=== PATIENT | male | born 1965 | race African-American/Black ===

== ENCOUNTER 2020-10-25 09:47 | Inpatient (IN) | payer MEDICAID ==
[~2020-10-25] VITALS: Ht 185.4 cm; Wt 131.1 kg
[2020-10-25 10:30] LABS: BASOPHILS % 0.9 % (0.0-2.0); HEMATOCRIT. 27.4 % (42.0-52.0); HEMOGLOBIN. 8.3 g/dL (14.0-18.0); LYMPHOCYTES % 14.1 % (20.0-50.0); MEAN CORPUSCULAR HEMOGLOBIN 20.6 pg (28.0-32.0); MEAN CORPUSCULAR VOLUME 68.1 fL (80.0-94.0); MEAN PLATELET VOLUME 7.5 fl (7.4-10.4); MONOCYTES % 7.1 % (2.0-8.0); NEUTROPHILS % 75.9 % (40.0-76.0); PLATELET 483 x1000/uL (130-400); RED BLOOD CELL COUNT 4.03 mill/uL (4.7-6.1); RED CELL DISTRIBUTION WIDTH 22.8 % (11.6-14.6)
[2020-10-25 10:36] LABS: CHLORIDE 101 mEq/L (98-107)
[2020-10-25 10:45] LABS: ETHANOL BLOOD < 10 mg/dL
[2020-10-25] MEDS ORDERED: FUROSEMIDE 40MG/4ML VIAL IVP ONE (12:00)
[2020-10-25] MEDS ORDERED: ASPIRIN 325MG EC TABLET PO ONE (12:00)
[2020-10-25 12:19] LABS: PLATELET ESTIMATE SLIGHTLY INCREASED
[2020-10-25] MEDS ORDERED: ONDANSETRON HCL 4MG/2ML INJ IV ONE (12:45)
[2020-10-25 14:48] LABS: CLARITY URINE CLEAR (CLEAR); COLOR URINE YELLOW (YELLOW); KETONES URINE TRACE (NEGATIVE); LEUKOCYTE ESTERASE URINE NEGATIVE (NEGATIVE); NITRITE URINE NEGATIVE (NEGATIVE); OCCULT BLOOD URINE NEGATIVE (NEGATIVE); PH URINE 5.5 (4.5-8.0); PROTEIN URINE 2+ (NEGATIVE); SPECIFIC GRAVITY URINE 1.016 (1.005-1.030)
[2020-10-25 16:17] LABS: *AMPHETAMINES SCREEN URINE NEGATIVE (NEGATIVE)
[2020-10-25 16:18] LABS: *BARBITURATES SCREEN URINE NEGATIVE (NEGATIVE); *BENZODIAZEPINES SCREEN URINE NEGATIVE (NEGATIVE); *COCAINE SCREEN URINE NEGATIVE (NEGATIVE); METHADONE URINE SCREEN NEGATIVE (NEGATIVE); OPIATES URINE SCREEN NEGATIVE (NEGATIVE); PHENCYCLIDINE URINE SCREEN NEGATIVE (NEGATIVE)
[2020-10-25 16:19] LABS: CANNABINOID URINE SCREEN NEGATIVE (NEGATIVE)
[2020-10-25 21:30] VITALS: BP 114/65
[2020-10-25] MEDS ORDERED: SENN-257 PO (23:03)
[2020-10-25] MEDS ORDERED: FURO40TA5 PO (23:03)
[2020-10-25] MEDS ORDERED: ASPI-1497 PO (23:03)
[2020-10-25] MEDS ORDERED: CARV25TA47 PO (23:03)
[2020-10-25] MEDS ORDERED: INSU100I33 SQ (23:03)
[2020-10-25] MEDS ORDERED: ATOR-2 PO (23:03)
[2020-10-25] MEDS ORDERED: INSLIS SUBCUT (23:03)
[2020-10-25] MEDS ORDERED: NITR0.4T SL (23:03)
[2020-10-25] MEDS ORDERED: DULA0.75 SQ (23:03)
[2020-10-26] VITALS: BP 138/77
[2020-10-26] MEDS ORDERED: DEXTROSE 50% WATER 50ML SYRINGE IV PRN (01:15)
[2020-10-26 04:29] VITALS: BP 118/78
[2020-10-26 05:24] LABS: EOSINOPHILS % 3.6 % (0.0-5.0); HEMATOCRIT. 27.9 % (42.0-52.0); HEMOGLOBIN. 8.6 g/dL (14.0-18.0); LYMPHOCYTES % 20.8 % (20.0-50.0); MEAN CORPUSCULAR VOLUME 68.6 fL (80.0-94.0); MEAN PLATELET VOLUME 8.2 fl (7.4-10.4); MONOCYTES % 6.6 % (2.0-8.0); PLATELET 481 x1000/uL (130-400); RED BLOOD CELL COUNT 4.07 mill/uL (4.7-6.1); RED CELL DISTRIBUTION WIDTH 22.8 % (11.6-14.6)
[2020-10-26 05:52] LABS: CHLORIDE 102 mEq/L (98-107)
[2020-10-26 06:01] LABS: LDL CHOLESTEROL 92 mg/dL (5-100)
[2020-10-26 06:03] LABS: HDL CHOLESTEROL 31 mg/dL (40-59)
[2020-10-26] MEDS: BLOOD SUGAR DIAGNOSTIC STRIP TEST SCH ×4 (06:28→20:53)
[2020-10-26] MEDS ORDERED: FUROSEMIDE 40MG/4ML VIAL IVP SCH ×2 (07:15→18:00)
[2020-10-26] MEDS: INSULIN LISPRO 100 UNITS/ML SUBCUT SCH ×4 (07:50→21:10)
[2020-10-26 08:15] VITALS: BP 139/78
[2020-10-26] MEDS: LISINOPRIL 20MG TABLET PO SCH (08:44)
[2020-10-26] MEDS: ASPIRIN 81MG EC TABLET PO SCH (08:44)
[2020-10-26] MEDS: ENOXAPARIN 40MG/0.4ML SYR SUBCUT SCH (08:45)
[2020-10-26] MEDS: INSULIN GLARGINE UD 100 UNITS/ML SYR SUBCUT SCH ×2 (11:12→21:10)
[2020-10-26] MEDS: CARVEDILOL 12.5MG TABLET PO SCH ×2 (11:12→21:08)
[2020-10-26 12:15] VITALS: BP 109/64
[2020-10-26] MEDS: SPIRONOLACTONE 25MG TABLET PO SCH (12:59)
[2020-10-26 16:15] VITALS: BP 140/78
[2020-10-26 16:28] LABS: TOTAL IRON BINDING CAPACITY 242 ug/dL (250-450)
[2020-10-26] MEDS: ONDANSETRON HCL 4MG/2ML INJ IV PRN ×2 (17:28→23:56)
[2020-10-26] MEDS: FUROSEMIDE 40MG/4ML VIAL IVP SCH (17:28)
[2020-10-26 20:00] VITALS: BP 131/78
[2020-10-26] MEDS: ATORVASTATIN CALCIUM 40MG TABLET PO SCH (21:09)
[2020-10-27] VITALS: BP 123/79
[2020-10-27 04:00] VITALS: BP 121/72
[2020-10-27] MEDS: FUROSEMIDE 40MG/4ML VIAL IVP SCH ×3 (06:01→20:55)
[2020-10-27] MEDS: BLOOD SUGAR DIAGNOSTIC STRIP TEST SCH ×4 (06:41→20:54)
[2020-10-27 08:00] VITALS: BP 113/62
[2020-10-27] MEDS: INSULIN LISPRO 100 UNITS/ML SUBCUT SCH ×4 (08:15→20:53)
[2020-10-27] MEDS: CARVEDILOL 12.5MG TABLET PO SCH ×2 (08:17→20:54)
[2020-10-27] MEDS: LISINOPRIL 20MG TABLET PO SCH (08:17)
[2020-10-27] MEDS: SPIRONOLACTONE 25MG TABLET PO SCH (08:17)
[2020-10-27] MEDS: ASPIRIN 81MG EC TABLET PO SCH (08:18)
[2020-10-27] MEDS: ENOXAPARIN 40MG/0.4ML SYR SUBCUT SCH (08:18)
[2020-10-27] MEDS: INSULIN GLARGINE UD 100 UNITS/ML SYR SUBCUT SCH ×2 (09:35→22:07)
[2020-10-27] MEDS ORDERED: SORBITOL 70% SOLN 30ML PO NR (10:30)
[2020-10-27] MEDS ORDERED: HYDROCODONE/ACETAMINOPHEN 5/325MG TABLET PO PRN (10:30)
[2020-10-27 12:00] VITALS: BP 98/62
[2020-10-27] MEDS ORDERED: NALOXONE HCL 0.4MG/ML VIAL IV PRN (12:30)
[2020-10-27 16:00] VITALS: BP 107/73
[2020-10-27 16:47] LABS: CHLORIDE 99 mEq/L (98-107)
[2020-10-27] MEDS: AMPICILLIN SOD/SULBACTAM NA 3 G in SODIUM CHLORIDE 0.9% 100 ML IV SCH ×2 (18:25→22:07)
[2020-10-27 20:00] VITALS: BP 100/58
[2020-10-27] MEDS: ATORVASTATIN CALCIUM 40MG TABLET PO SCH (20:52)
[2020-10-27 21:55] LABS: BASOPHILS % 0.4 % (0.0-2.0); EOSINOPHILS % 0.7 % (0.0-5.0); HEMATOCRIT. 31.6 % (42.0-52.0); HEMOGLOBIN. 9.7 g/dL (14.0-18.0); LYMPHOCYTES % 12.6 % (20.0-50.0); MEAN CORPUSCULAR HEMOGLOBIN 20.8 pg (28.0-32.0); MEAN PLATELET VOLUME 7.6 fl (7.4-10.4); MONOCYTES % 9.8 % (2.0-8.0); NEUTROPHILS % 76.5 % (40.0-76.0); PLATELET 628 x1000/uL (130-400); RED BLOOD CELL COUNT 4.65 mill/uL (4.7-6.1); RED CELL DISTRIBUTION WIDTH 23.3 % (11.6-14.6)
[2020-10-27 22:03] LABS: CHLORIDE 97 mEq/L (98-107)
[2020-10-28] VITALS: BP 92/51
[2020-10-28 04:00] VITALS: BP 91/55
[2020-10-28] MEDS: AMPICILLIN SOD/SULBACTAM NA 3 G in SODIUM CHLORIDE 0.9% 100 ML IV SCH ×3 (04:19→17:00)
[2020-10-28] MEDS: INSULIN LISPRO 100 UNITS/ML SUBCUT SCH ×3 (07:50→17:50)
[2020-10-28] MEDS: BLOOD SUGAR DIAGNOSTIC STRIP TEST SCH ×3 (07:59→17:20)
[2020-10-28 08:00] VITALS: BP 95/59
[2020-10-28] MEDS: SPIRONOLACTONE 25MG TABLET PO SCH (08:23)
[2020-10-28] MEDS: ASPIRIN 81MG EC TABLET PO SCH (08:23)
[2020-10-28] MEDS: CARVEDILOL 12.5MG TABLET PO SCH (08:23)
[2020-10-28] MEDS: LISINOPRIL 20MG TABLET PO SCH (08:24)
[2020-10-28] MEDS ORDERED: ENOXAPARIN 30MG/0.3ML SYR SUBCUT SCH (09:00)
[2020-10-28] MEDS: INSULIN GLARGINE UD 100 UNITS/ML SYR SUBCUT SCH (10:34)
[2020-10-28] MEDS ORDERED: LISINOPRIL 5MG TABLET PO SCH (11:00)
[2020-10-28 12:00] VITALS: BP 99/56
[2020-10-28] MEDS ORDERED: AMOX-424 MT (15:17)
[2020-10-28 16:04] VITALS: BP 103/66
[2020-10-28] MEDS ORDERED: FUROSEMIDE 40MG/4ML VIAL IVP SCH (18:00)
[2020-10-28 18:16] VITALS: BP 102/68
[2020-10-29] MEDS ORDERED: FUROSEMIDE 40MG TABLET PO SCH (06:00)
== END 2020-10-28 19:02 | disposition home or self-care (01) | DRG 364 ==
LOC: ER 10:08 → 6WST 13:17 → ENRESERV 19:25
PROVIDERS: ADMIT Internal Medicine; ATTEND Internal Medicine
PROC: 0JBN0ZZ Excision of Right Lower Leg Subcutaneous Tissue and Fascia, Open Approach (ICD-10-PCS; principal; 2020-10-26)
PROC: 0QBP0ZZ Excision of Left Metatarsal, Open Approach (ICD-10-PCS; 2020-10-26)
DX: E11.621 Type 2 diabetes mellitus with foot ulcer (principal); L97.526 Non-pressure chronic ulcer of other part of left foot with bone involvement without evidence of necrosis; L97.412 Non-pressure chronic ulcer of right heel and midfoot with fat layer exposed; I50.43 Acute on chronic combined systolic (congestive) and diastolic (congestive) heart failure; E43 Unspecified severe protein-calorie malnutrition; I27.20 Pulmonary hypertension, unspecified; E11.51 Type 2 diabetes mellitus with diabetic peripheral angiopathy without gangrene; I48.92 Unspecified atrial flutter; E87.1 Hypo-osmolality and hyponatremia; I48.0 Paroxysmal atrial fibrillation; D64.9 Anemia, unspecified; I11.0 Hypertensive heart disease with heart failure; D72.829 Elevated white blood cell count, unspecified; E66.9 Obesity, unspecified; I25.10 Atherosclerotic heart disease of native coronary artery without angina pectoris; Z20.822 Contact with and (suspected) exposure to COVID-19; R09.89 Other specified symptoms and signs involving the circulatory and respiratory systems; Z95.1 Presence of aortocoronary bypass graft; Z83.3 Family history of diabetes mellitus; Z88.5 Allergy status to narcotic agent; Z68.38 Body mass index [BMI] 38.0-38.9, adult; Z79.2 Long term (current) use of antibiotics
CPT/HCPCS: 36415; 71045; 74018; 80048; 80053; 80061; 80305; 80320; 81003; 82728; 82962; 83036; 83540; 83550; 83605; 83880; 84484; 85025; 87070; 87075; 87077; 87186; 87426; 93005; 93306; 97162; 99291; J0295; J1650; J1815; J1940; J2405; J7050; G0480